=== PATIENT | male | born 1965 | race Caucasian/White ===

== ENCOUNTER → 2021-04-01 07:47 | Outpatient (CLI) | payer BC, SELFPAY ==
[2021-04-01 09:14] LABS: Chloride 105 mmol/L (98-107); Potassium 4.4 mmoL/L (3.5-5.1); Sodium 140 mmol/L (136-145)
[2021-04-01 09:16] LABS: Alanine Aminotransferase 32 U/L (12-78); Alkaline Phosphatase 74 U/L (38-126); Aspartate Amino Transferase 45 U/L (17-59); Bilirubin,Total 0.7 mg/dl (0.2-1.3); Blood Urea Nitrogen 24 mg/dl (9-20); Estimated Glomerular Filt Rate 88 ml/min (>60); GFR (African American) 106 ML/MIN (>60)
[2021-04-01 09:17] LABS: Albumin Level 4.6 g/dl (3.5-5.0); Albumin/Globulin Ratio 1.6 (1.1-1.8); Anion Gap 12.4 mEq/L (5-15); Carbon Dioxide 27 mmol/L (22.0-30.0); Chol/HDL Ratio 4.6 (1-3.5); Cholesterol 235 mg/dl (140-200); Globulin 2.8 g/dL (1.3-3.2); Glucose 105 mg/dl (74-100); HDL Cholesterol 51 mg/dl (40-60); Total Protein,Serum 7.4 g/dl (6.3-8.2); Triglycerides 144 mg/dl (30-150); VLDL Cholesterol 29 mg/dL (0-40)
[2021-04-01 09:28] LABS: Direct LDL Cholesterol 146.04 mg/dL (100-129)
== END ==
PROVIDERS: Visit Provider Nurse Practitioner Family
DX: Z00.00 Encounter for general adult medical examination without abnormal findings (principal)
CPT/HCPCS: 36415; 80053; 80061

== ENCOUNTER → 2021-05-16 08:44 | Outpatient (CLI) | payer BC, SELFPAY | PROVIDERS: PCP Nurse Practitioner Family; Visit Provider Nurse Practitioner | DX: Z20.822 Contact with and (suspected) exposure to COVID-19 (principal) | CPT/HCPCS: C9803; U0003; U0005 ==

== ENCOUNTER 2021-05-19 10:23 | Day surgery (SDC) | payer BC, SELFPAY ==
[2021-05-15 13:55] VITALS: BMI 27.8
[2021-05-19] VITALS (7 sets, daily range): BP systolic 104–144; BP diastolic 69–96; PULSE 78–87; RESP 16–18; TEMP 36.3–37.2; O2SAT 93–97
--- NOTE | 2021-05-19 11:44 | P.PN_ITS ---
[facility] Anesthesia Checklist - Patient Identification Patient Identification: Arm Band - Structural Data Admitted From: Home Planned Operative Procedure/s: colonoscopy Consent for Planned Operative Procedure(s) Verified: Yes Verified Documents: Surgical Consent, History and Physical - NPO Status Verified Time NPO: 00:00 - Additional verifications Anesthesia Reactions: No - Airway Assessment C-Spine Mobility Assessed: Yes (mp2) TMJ Mobility Assessed: Yes Dentition: Good Dentition - Neurological Assessment Level of Consciousness: Awake, Alert - Anesthesia Plan Anesthesia Risk discussed: Yes Anesthesia Plan: Verified ASA Class: I Anesthesia Type: MAC [facility] History I have reviewed the patient's past medical history: Yes Medical History: Denies:: Cancer, Diabetes Mellitus Type 1, Diabetes Mellitus Type 2, Internal Pacemaker, MRSA, Seizures *Have you ever received a pneumonia vaccine?: No *Have you received a flu vaccine this season?: No Anesthesia experience/problems:: nac Laterality Cases: Right: Arthroscopy Shoulder, Bilateral: Tonsillectomy Other Surgeries: No: Pacemaker Amputation: No Fractures: No - *Social History Last grade of school completed: High school graduate Smoking Status: Never smoker Alcohol Intake: current Alcohol Intake Frequency:: holidays/special occasions only Substance Use Type: denies use *Occupational Status:: employed Housing: house Household Members: spouse *Travel in the last 8 weeks: Inside the [facility] Family Hx:: Cancer
--- NOTE | 2021-05-19 12:06 | HMH.PROC ---
[facility] Procedure Note Procedure Note:: Colonoscopy Procedure Report: Colonoscopy Endoscopist: Uche Mace II, MD Referring physician: Millicent REESE Date of Procedure: May 19, 2021 Equipment: Olympus 190 variable stiffness pediatric colonoscope Sedation: MAC sedation Indication: Mr. Yuen is a 55-year-old gentleman who is here for initial screening colonoscopy. He is high risk because of family history. His mother had colon cancer in her late 60s. He reports no abdominal pain, weight loss, change in his bowel habits or rectal bleeding. Procedure: Prior to the procedure, a history and physical exam was performed, and patient's medications and allergies were reviewed. The risks, benefits and alternatives of the sedation and procedure were discussed with the patient. All questions were answered and informed consent was obtained. The patient was brought to the procedure room. Patient identification and proposed procedure were verified by the physician and the nurse. The patient was placed in a left lateral decubitus position and the scope was passed under direct vision. Throughout the procedure, the patient's blood pressure, pulse, and oxygen saturations were monitored continuously. The colonoscopy was accomplished without difficulty. The patient tolerated the procedure well. Findings: On digital rectal examination there was normal rectal tone. There were no external hemorrhoids. The prostate was 2+, smooth, soft, symmetric without nodules. The colonoscope was introduced through the anal canal to the rectum and advanced to the cecum. The ileocecal valve and appendiceal orifice were identified. The scope was advanced a short distance into the ileum which appeared grossly normal. The scope was then withdrawn into the colon. The cecum, ascending, transverse, descending, sigmoid and rectum were grossly normal. There were no mucosal abnormalities identified. Upon retroflexion within the rectum there were grade 1-2 internal hemorrhoids.The preparation was excellent throughout with [place] Preparation Score of 9. The cecal time was 10 minutes. Impression: 1. Normal colonoscopy with intubation of the terminal ileum 2. Grade 1-2 internal hemorrhoids Plan: Based upon the patient's family history, I will recommend repeat surveillance colonoscopy again in 5 years. I would encourage bulk fiber supplementation on a long-term daily maintenance basis.
== END 2021-05-19 12:57 | disposition home or self-care (01) ==
LOC: OUTP 10:26
PROVIDERS: PCP Nurse Practitioner Family; Visit Provider Internal Medicine Gastroenterology
PROC: 0DJD8ZZ Inspection of Lower Intestinal Tract, Via Natural or Artificial Opening Endoscopic (ICD-10-PCS; CPT 45378; principal; 2021-05-19 11:30)
DX: Z12.11 Encounter for screening for malignant neoplasm of colon (principal); Z80.0 Family history of malignant neoplasm of digestive organs; K64.0 First degree hemorrhoids
CPT/HCPCS: 45378

== ENCOUNTER 2023-10-06 13:55 | Emergency (ER) | payer BC, SELFPAY ==
[2023-10-06 14:15] VITALS: BP 158/91; PULSE 76; RESP 19; TEMP 36.6; O2SAT 100; BMI 36.0
--- NOTE | 2023-10-06 14:27 | XR_ITS ---
FINAL REPORT CLINICAL HISTORY: FELL A POP IN THE LOWER LEG WHEN LIFTING ON A CAR COMPARISON: None FINDINGS: 2 views of the left tibia/fibula were obtained. There is no acute fracture or dislocation. There is mild degenerative change in the ankle. There is no soft tissue abnormality. IMPRESSION: No acute fracture Reviewed, Interpreted and Dictated by Perfecto Henderson III, MD Transcribed by Joleen Milligan Authenticated and [facility]
--- NOTE | 2023-10-06 14:27 | XR_ITS ---
FINAL REPORT CLINICAL HISTORY: FELT LEFT ANKLE POP WHEN LIFTING ON A CAR COMPARISON: None FINDINGS: LEFT ANKLE: Three views of the left ankle were obtained. There is no acute fracture or dislocation. There is mild degenerative change. The ankle mortise is intact. There is no soft tissue abnormality. IMPRESSION: No acute bony abnormality. Reviewed, Interpreted and Dictated by Perfecto Henderson III, MD Transcribed by Joleen Milligan Authenticated and . [facility]
--- NOTE | 2023-10-06 14:33 | EXP.UTC ---
Discharge Plan Disposition Patient Disposition: Home, Self-Care Condition: Good Prescriptions Prescriptions: New ibuprofen [ibuprofen] 600 mg tablet 600 mg PO Q6HP PRN (Reason: Mild Pain) Qty: 30 0RF No Action hghjeylb-twd-lylcx acid-vit K 1 EACH capsule 1 each PO DAILY Referrals Follow up/Referrals: Bola Bo DO [Staff Physician] - 10/12/23 3:00 pm Darien Figueroa MD [Primary Care Provider] - See instructions Activity Restrictions/Add. Instructions Additional Instructions/Restrictions: Rest the extremity, Elevate the extremity as tolerated while you are resting. Take ibuprofen for pain (if you can take this). I sent in a prescription to your pharmacy. Follow up with Dr. Bo (orthopedics). You have an appointment in his office on October 12 at 3:00 pm. Follow up with your regular doctor. GO TO THE ER FOR ANY WORSENING SYMPTOMS Clinical Impressions Clinical Impression: Strain of left calf muscle, Strain of left Achilles tendon, initial encounter Instructions Patient Instructions: DI for Calf Muscle Strain, DI for Achilles Tendinopathy Discharge ED Provider: Poncho Montelongo [facility] General Stated complaint: left lower leg pain Time Seen by Provider: 10/06/23 14:33 History of Present Illness Provider Complaint: He states that 3 days ago he was trying to lift his car hauling trailer when he felt something pull in the back of his left leg and ankle. Since then he has had pain and swelling of the back of that leg in the Achilles tendon area up to about midcalf. He is walking on the extremity, but he states that it hurts every time he bears weight or flexes his ankle. He denies any other injury. Related Data Home Medications Medication Instructions Recorded Confirmed mvklqtrvwcca-maljejru-iagdv acid 1 each PO DAILY Supplement 05/15/21 05/15/21 400 mcg-vitamin K 40 mcg capsule Previous Rx's Medication Instructions Recorded ibuprofen 600 mg tablet 600 mg PO Q6HP PRN Mild Pain #30 10/06/23 tabs Allergies Allergy/AdvReac Type Severity Reaction Status Date / Time No Known Allergies Allergy Verified 10/06/23 14:33 [facility] Disclaimer: The information contained in this section may have been updated after the patient was seen, as this information can be updated by other users. Social History Smoking Status: Never smoker second hand exposure: No alcohol intake: current substance use type: denies use current occupational status: employed Travel in the last 8 weeks: Inside the [place] household members: spouse housing: house current occupation: [employer] of [employer] current occupational exposures/hazards: No caffeine: Yes ROS Obtained: Yes All systems reviewed & no additional complaints except as documented Constitutional Constitutional: Denies chills and Denies fever(s) Eyes Eyes: Denies eye discharge ENT Ears, Nose, Mouth, and Throat: Denies dizziness, Denies otalgia and Denies sore throat Cardiovascular Cardiovascular: Denies chest pain Respiratory Respiratory: Denies shortness of breath, Denies chest congestion, Denies cough, Denies stridor and Denies wheezing Gastrointestinal Gastrointestingal: Denies nausea or vomiting Musculoskeletal Musculoskeletal: Reports as per HPI Integumentary/Breasts Skin/Breast: Denies rash Neurologic Neurologic: Denies dizziness and Denies paresthesias Allergic/Immunologic Allergic/Immunologic: Denies wheezing Physical Exam General General appearance: alert and in no apparent distress Head Head exam: atraumatic, normocephalic and normal inspection Eye Eye exam: Present normal appearance, PERRL and EOMI ENT ENT exam: Present normal exam, normal oropharynx, mucous membranes moist, TM's normal bilaterally and normal external ear exam Neck Neck exam: Present normal inspection, full ROM and trachea midline; Absent meningismus or lymphadenopathy Chest Chest inspection: Present normal inspection and symmetric chest wall rise; Absent tenderness Respiratory Respiratory exam: Present normal lung sounds bilaterally; Absent respiratory distress Cardiovascular Cardiovascular exam: Present regular rate and normal rhythm; Absent JVD Abdominal Exam Abdominal exam: Present soft and normal bowel sounds; Absent distention, tenderness or guarding Extremities Exam Extremities exam: Present normal capillary refill; Absent calf tenderness Expanded Lower Extremity Exam Left: Hip/Pelvis exam: Present normal inspection and full ROM; Absent tenderness Upper leg exam: Present normal inspection and full ROM; Absent tenderness Knee exam: Present normal inspection, full ROM and knee extension intact; Absent tenderness, swelling, abrasion, laceration, ecchymosis, deformity, crepitus, dislocation, erythema, effusion, anterior drawer sign, posterior draw sign, pain with valgus, laxity with valgus, pain with varus or laxity with varus Lower leg exam: Present tenderness, swelling and Achilles tendon intact; Absent full ROM, abrasion, laceration, ecchymosis, deformity, crepitus, dislocation, erythema, palpable cord or Homans' sign Ankle exam: Present tenderness and swelling; Absent full ROM, abrasion, laceration, ecchymosis, deformity, crepitus, dislocation, erythema, tenderness over talofibular lig or anterior draw sign Foot/toe exam: Present normal inspection and full ROM; Absent tenderness Neurovascular/Tendon exam: Present normal capillary refill, normal 2-point discrimination and normal fine/light touch; Absent pulse deficit, motor deficit, sensory deficit, tendon deficit, extremity cold to touch or pallor Gait: observed and limited by pain Back Exam Back exam: Present normal inspection; Absent tenderness Neurological Exam Neurological exam: Present alert and oriented X3 Psychiatric Psychiatric exam: Present normal affect and normal mood Skin Skin exam: Present warm, dry, intact and normal color Lymphatic Lymphatic Findings: no adenopathy Medical Decision Making Medical Records Medical records reviewed: No I reviewed the patient's medical records. Jacek Inquiry Pt receiving controlled substance: No Orders (Tests/Meds): ORDERS Category Date Time Status XR ankle LT min 3V Stat Exams 10/06/23 14:27 Ordered XR tibia fibula LT 2V Stat Exams 10/06/23 14:27 Ordered Radiology Data #1: Image(s): Tib/Fib Image Reviewed: Yes I reviewed the patient's radiology image Preliminary Findings: No Fracture Seen FINAL REPORT CLINICAL HISTORY: FELL A POP IN THE LOWER LEG WHEN LIFTING ON A CAR COMPARISON: None FINDINGS: 2 views of the left tibia/fibula were obtained. There is no acute fracture or dislocation. There is mild degenerative change in the ankle. There is no soft tissue abnormality. IMPRESSION: No acute fracture Reviewed, Interpreted and Dictated by Perfecto Henderson III, MD Transcribed by Joleen Milligan Authenticated and [facility]: Image(s): Ankle Image Reviewed: Yes I reviewed the patient's radiology image and Yes I have reviewed radiologist's interpretation Preliminary Findings: No Fracture Seen FINAL REPORT CLINICAL HISTORY: FELT LEFT ANKLE POP WHEN LIFTING ON A CAR COMPARISON: None FINDINGS: LEFT ANKLE: Three views of the left ankle were obtained. There is no acute fracture or dislocation. There is mild degenerative change. The ankle mortise is intact. There is no soft tissue abnormality. IMPRESSION: No acute bony abnormality. Reviewed, Interpreted and Dictated by Perfecto Henderson III, MD Transcribed by Joleen Milligan Authenticated and [facility] Procedures Risk/Benefits of Procedure(s) Were Explained: Yes Orthopedic Splinting/Casting Injury #1: Side: left Lower Extremity Injury Location: lower leg, ankle and foot Lower Extremity Immobilizer: boot orthosis (He brought his own boot orthosis from home. ) Post Cast/Splinting Neuro Status: intact and no change Post Cast/Splinting Vasc Status: intact and no change
[2023-10-06 15:46] VITALS: BP 158/91; PULSE 76; RESP 19; TEMP 36.6; O2SAT 100
== END 2023-10-06 15:45 | disposition home or self-care (01) ==
PROVIDERS: Emergency Provider Nurse Practitioner Family; PCP Internal Medicine Adolescent Medicine
DX: S86.812A Strain of other muscle(s) and tendon(s) at lower leg level, left leg, initial encounter (principal); S86.012A Strain of left Achilles tendon, initial encounter; M79.662 Pain in left lower leg; X50.0XXA Overexertion from strenuous movement or load, initial encounter
CPT/HCPCS: 73590; 73610; 99204; 99212; G0463